=== PATIENT | male | born 1995 | race African-American/Black ===

== ENCOUNTER → 2020-08-15 | Day surgery (SDC) | payer OTHER ==
[2020-08-15] VITALS (8 sets, daily range): BP systolic 130–156; BP diastolic 59–84
[~2020-08-15] VITALS: Ht 180.3 cm; Wt 100.0 kg
[~2020-08-15] MED LIST: BUPIVAcaine/PF 2.5 mg/ml (0.25%) 30ml vial ONE; NO HOME MEDS; ROPIVAcaine 0.5% (5mg/ml) 30ml vial ONE; bacitracin 15gm ointment TP ONE; cefazolin/dext.iso 2gm/100ml IV ONE; cloNIDine hcl/PF 100mcg/ml inj ONE; famotidine 20mg tablet PO ONE; fentaNYL/PF 50MCG/1 ML 2ML syringe ONE; meperidine/PF 25mg/ml syringe IV PRN; midazolam 1 mg/ML 2ml injection ONE; morphine 2 MG/ML inj. syringe IV PRN; morphine 4 MG/ML inj SYRINge IV PRN; ondansetron/PF 4mg/2ml inj IV PRN; proCHLORperazine 10 MG/2 ml inj IV PRN; propofol inj 20 ML IV ONE; ringers solution, lacted 1,000 ML IV SCH; sevoflurane 250ml liquid IH ONE
--- NOTE | 2020-08-15 20:07 | NUR ---
Received from OR via J[facility]IE , accompanied by Anesthesiologist YANDY and report given by Anesthesiolgist. PATIENT WITH 20G PIV IN RIGHT UE RUNNING LR AT 100. DENIES PAIN. MEDICATED FOR POST OP SHIVERS UPON ARRIVAL 10L MASK ON WITH 100%SATURATIONS.RADHA ASHVINGGER APPLIED FOR COMFORT. LEFT UE DRESSING/ SPLINT IS INTACT AND CDI. 2 GAURTRAV PRESENT AT BEDSIDE. Addendum: 08/15/20 at 2010 by Marcus Macdonald RN, RN Amended: Links added.
--- NOTE | 2020-08-15 20:34 | NUR ---
CARE TURNED OVER TO IOANA LOPEZ. PATIENT IN STABLE CONDITION AND 2 GAURDS AWAIT DC. Addendum: 08/15/20 at 2033 by Marcus Srinivasan - IOANA TRIPLETT Amended: Links added.
--- NOTE | 2020-08-15 20:48 | NUR ---
ALL DISCHARGE CRITERIA HAS BEEN MET. VSS, PAIN AT A TOLERABLE LEVEL, VOIDING AND ABLE TO SAFELY AMBULATE AND TRANSFER SELF. IV TAKEN OUT WITHOUT ANY COMPLICATIONS. ALL DISCHARGE INSTRUCTIONS COVERED WITH PATIENT AND GUARDS AND ALL QUESTIONS ANSWERED. PATIENT TAKEN OUT VIA WHEELCHAIR TO PERSONAL VEHICLE WHERE GUARDS DROVE PATIENT TO [facility] Addendum: 08/15/20 at 2102 by Candis Macdonald RN, RN Amended: Links added.
== END | disposition home or self-care (01) ==
LOC: PAS 12:12 → EEVIPCON 15:00
PROVIDERS: ATTEND Orthopaedic Surgery
DX: S62.292A Other fracture of first metacarpal bone, left hand, initial encounter for closed fracture (principal); G89.18 Other acute postprocedural pain; F12.90 Cannabis use, unspecified, uncomplicated; Z98.890 Other specified postprocedural states; Z79.899 Other long term (current) drug therapy; X58.XXXA Exposure to other specified factors, initial encounter; Y93.89 Activity, other specified; Y92.89 Other specified places as the place of occurrence of the external cause; Y99.8 Other external cause status
CPT/HCPCS: 26615; 64415; 76942; 82948; C1713; J0735; J2175; J2250; J2704; J3010; J3490; A4618; A6258; A6449; A7000; J2795; J7120